=== PATIENT | male | born 1980 | race Caucasian/White ===

== ENCOUNTER 2021-05-02 17:57 | Observation (INO) | payer SELFPAY ==
--- NOTE | 2021-05-02 18:22 | ED.GENADUL_ITS ---
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 Orthopedics is recommending you wear a thumb splint for comfort but you can remove it if needed. If it recommended you follow up with orthopedics in the next 1-2 weeks. Referrals: Yonatan Chew MD [ [facility] STAFF PHYSICIAN] - Medical Decision Making <Erika Ellison - Last Filed: 05/02/21 23:29> 40-year-old male presents to the ER with chief complaint of psych evaluation and suicidal ideation. Patient presents with police officers he is in handcuffs. Upon initial examination he is laying on the ground in the waiting room banging his head up against a door stating I want to kill myself, I want to slit my wrist, I want to cut my throat. He is yelling, pressured speech, patient is not answering any questions. 1822: Spoke with Ne with [facility] who reports that [employer] patient was taken into custody for assault and began stating he wanted to kill himself and was harming himself in the holding cell. 1827: Patient escorted back to the room forcefully by police, he is yelling obscenities to staff, he did spit in the face of one of the officers upon entrance into the room. Patient states to one of the staff, I feel like I want to beat the shit out of you just because I'm here for mental health and I can. Psychiatric work-up ordered including labs and urine, Haldol, Ativan and Benadryl IM ordered. Code kayley called. 1848: Patient initially agreed to take oral medication however at this time he is now refusing. Patient did get into paper down, his belongings were collected he is in line of sight of the nurses station. He states that he is willing to have his blood drawn and a urine sample obtained. Patient standing in room pushing the call buton box, called a staff assist. 1910: Patient has agreed to have labs drawn. He continues to be disruptive and yelling obscenities and threats at myself and staff. He is threatening to put my ass through that glass brenda you all are taking too long. property staff accountant to attempt again to give patient medication to decrease anxiety and agitation. 1925: Patient agreed to take medications orally however right after he escalated and became more agitated and became violent, he is rocking the stretcher back and forth, then standing at the entrance to the room naked with his fists up striking his fist out at the security manager and hitting his hand that was up by his face. He is also making verbal threats to the staff. He stated to Kellie RN that I'm going to snap your fucking neck bitch. Dr. La Nena Mccarty is here at bedside, we are prepared to restrain patient physically and sedate if needed. [facility] here. 1944: [facility] here requesting immediate mental health evaluation, they will stay with patient in the room until MH arrives. Lab results show no leukocytosis hemoglobin 11.4, hematocrit 36.3, sodium 139, potassium 3.4, ethyl alcohol 108.5 2021: Ne with [facility] here at for patient evaluation. 2038: Patient is slight sleepy at this time, spoke with Ne with [facility] has completed her evaluation. Per [facility] they are hesitant to take patient to long term due to patient's voluntary status and suicidal ideation. Patient did express a plan to Ne for suicide and stated that he wanted to jump in the line of traffic or do anything necessary to kill himself. [facility] did say that if patient elevates or becomes agitated at all to call them right away and they will be happy to return to the hospital. At this time we did not attempt to restrain patient and we are decreasing stimulus as much as possible at this time. [facility] will be seeking inpatient psychiatric placement. 2218: Patient sleeping, has remained calm since medications. Restraint orders canceled, they were never initiated. Care is to be handed off to ER attending Dr. Brandon pending inpatient psych placement. At this time patient is voluntary and is sleeping in the room, sitter is at bedside. <Siddhartha Brandon MD - Last Filed: 05/02/21 23:46> 40-year-old male presents to the ER with chief complaint of psych evaluation and suicidal ideation. Patient presents with police officers he is in handcuffs. Upon initial examination he is laying on the ground in the waiting room banging his head up against a door stating I want to kill myself, I want to slit my wrist, I want to cut my throat. He is yelling, pressured speech, patient is not answering any questions. 182: Spoke with Ne with [facility] who reports that [employer] patient was taken into custody for assault and began stating he wanted to kill himself and was harming himself in the holding cell. 182: Patient escorted back to the room forcefully by police, he is yelling obscenities to staff, he did spit in the face of one of the officers upon entrance into the room. Patient states to one of the staff, I feel like I want to beat the shit out of you just because I'm here for mental health and I can. Psychiatric work-up ordered including labs and urine, Haldol, Ativan and Benadryl IM ordered. Code kayley called. 1848: Patient initially agreed to take oral medication however at this time he is now refusing. Patient did get into paper down, his belongings were collected he is in line of sight of the nurses station. He states that he is willing to have his blood drawn and a urine sample obtained. Patient standing in room pushing the call buton box, called a staff assist. 191: Patient has agreed to have labs drawn. He continues to be disruptive and yelling obscenities and threats at myself and staff. He is threatening to put my ass through that glass brenda you all are taking too long. property staff accountant to attempt again to give patient medication to decrease anxiety and agitation. 192: Patient agreed to take medications orally however right after he escalated and became more agitated and became violent, he is rocking the stretcher back and forth, then standing at the entrance to the room naked with his fists up striking his fist out at the security manager and hitting his hand that was up by his face. He is also making verbal threats to the staff. He stated to Kellie RN that I'm going to snap your fucking neck bitch. Dr. La Nena Mccarty is here at bedside, we are prepared to restrain patient physically and sedate if needed. [facility] here. 1944: [facility] here requesting immediate mental health evaluation, they will stay with patient in the room until MH arrives. Lab results show no leukocytosis hemoglobin 11.4, hematocrit 36.3, sodium 139, potassium 3.4, ethyl alcohol 108.5 2021: Ne with KJ here at for patient evaluation. 2038: Patient is slight sleepy at this time, spoke with Ne with [facility] has completed her evaluation. Per [facility] they are hesitant to take patient to long term due to patient's voluntary status and suicidal ideation. Patient did express a plan to Ne for suicide and stated that he wanted to jump in the line of traffic or do anything necessary to kill himself. [facility] did say that if patient elevates or becomes agitated at all to call them right away and they will be happy to return to the hospital. At this time we did not attempt to restrain patient and we are decreasing stimulus as much as possible at this time. [facility] will be seeking inpatient psychiatric placement. 2218: Patient sleeping, has remained calm since medications. Restraint orders canceled, they were never initiated. Care is to be handed off to ER attending Dr. Brandon pending inpatient psych placement. At this time patient is voluntary and is sleeping in the room, sitter is at bedside. 05/02 Pt signed out to me, Dr. Brandon, pending psych placement. Reportedly violent on arrival but since taking po meds has been calm and sleeping, will continue to monitor until psych placement is found <Bijal Richmond DO - Last Filed: 05/07/21 08:58> 40-year-old male presents to the ER with chief complaint of psych evaluation and suicidal ideation. Patient presents with police officers he is in handcuffs. Upon initial examination he is laying on the ground in the waiting room banging his head up against a door stating I want to kill myself, I want to slit my wrist, I want to cut my throat. He is yelling, pressured speech, patient is not answering any questions. 182: Spoke with Ne with [facility] who reports that [employer] patient was taken into custody for assault and began stating he wanted to kill himself and was harming himself in the holding cell. 1827: Patient escorted back to the room forcefully by police, he is yelling obscenities to staff, he did spit in the face of one of the officers upon entrance into the room. Patient states to one of the staff, I feel like I want to beat the shit out of you just because I'm here for mental health and I can. Psychiatric work-up ordered including labs and urine, Haldol, Ativan and Benadryl IM ordered. Code kayley called. 1847: Patient initially agreed to take oral medication however at this time he is now refusing. Patient did get into paper down, his belongings were collected he is in line of sight of the nurses station. He states that he is willing to have his blood drawn and a urine sample obtained. Patient standing in room pushing the call buton box, called a staff assist. 1910: Patient has agreed to have labs drawn. He continues to be disruptive and yelling obscenities and threats at myself and staff. He is threatening to put my ass through that glass brenda you all are taking too long. property staff accountant to attempt again to give patient medication to decrease anxiety and agitation. 1925: Patient agreed to take medications orally however right after he escalated and became more agitated and became violent, he is rocking the stretcher back and forth, then standing at the entrance to the room naked with his fists up striking his fist out at the security manager and hitting his hand that was up by his face. He is also making verbal threats to the staff. He stated to Kellie RN that I'm going to snap your fucking neck bitch. Dr. La Nena Mccarty is here at bedside, we are prepared to restrain patient physically and sedate if needed. [facility] here. 1944: [facility] here requesting immediate mental health evaluation, they will stay with patient in the room until MH arrives. Lab results show no leukocytosis hemoglobin 11.4, hematocrit 36.3, sodium 139, potassium 3.4, ethyl alcohol 108.5 2021: Ne with KJ here at for patient evaluation. 2038: Patient is slight sleepy at this time, spoke with Ne with [facility] has completed her evaluation. Per [facility] they are hesitant to take patient to long term due to patient's voluntary status and suicidal ideation. Patient did express a plan to Ne for suicide and stated that he wanted to jump in the line of traffic or do anything necessary to kill himself. [facility] did say that if patient elevates or becomes agitated at all to call them right away and they will be happy to return to the hospital. At this time we did not attempt to restrain patient and we are decreasing stimulus as much as possible at this time. KJ will be seeking inpatient psychiatric placement. 2218: Patient sleeping, has remained calm since medications. Restraint orders canceled, they were never initiated. Care is to be handed off to ER attending Dr. Brandon pending inpatient psych placement. At this time patient is voluntary and is sleeping in the room, si tter is at bedside. 05/02 Pt signed out to me, Dr. Brandon, pending psych placement. Reportedly violent on arrival but since taking po meds has been calm and sleeping, will continue to monitor until psych placement is found Dr. Richmond 05/03: 0800 -- Case endorsed to continue to monitor while awaiting placement. 829 -- Patient stated he feels he injured his thumb while he was being restrained by police last night. He states he first injured his thumb last year and then subsequently sustained several more fractures and/or dislocations to his thumb which he states he reduced on his own. He states he was told in the [place] last year that he needed left thumb surgery. He has a hard bony enlargement noted to the left 1st MCP joint but this appears chronic and there is no noted ecchymosis, edema or obvious deformity. Patient states the MCP bony prominence and difficulty moving his L thumb is new since last night. He is unable to flex and extend at the IP when isolating this joint. Patient states he cannot take Tylenol or Motrin due to a child allergy of which he is unsure but he thinks one of them causes throat swelling. Discussed with patient that we would not prescribe narcotics for potential left thumb strain and he understands. If no obvious dislocation, will place a thumb spica splint. 3650 -- X-ray reviewed and notes volar subluxation of the 1st metacarpop halangeal joint. Case and x-ray reviewed with orthopedics who recommends thumb spica splint and follow-up in the office. Dr. Chew stated that the splint could be worn for comfort and removed if needed. 1030 -- patient began yelling and demanding his prayer medallion which is with his belongings. Nursing had explained that patient's belongings are secured and this time and cannot be accessed. He was offered a bible but declined. Patient states that he would like a phone to make a phone call as this is my right, and I've been admitted to lots of psych wards and they always let me have my things and make phone calls. Patient informed that we are securely holding his belongings and the plan is for him to speak with mental health around noon today. Patient was able to the redirected and now speaking more calmly. 1230 -- patient evaluated by Phuong with mental health --patient is denying suicidal or homicidal ideation but mental health feel that he would benefit from inpatient placement due to his ongoing behavior issues. Patient continuing to answer his medallion. In inspection of his belongings, patient has multiple heavy medallion's with large heavy chains that would be a potential risk to patient or others. Discussed with patient that we can give him his medallions without the chains but he is refusing. 1500 -- patient evaluated by Dr. Faulkner who found that patient is acutely agitated, may be acute clayton associated with bipolar disorder. He is recommending starting Depakote 1000 mg nightly, olanzapine 10 mg twice daily, olanzapine 5 mg every 4 hours up to a total of 30 mg, clonidine 0.1 mg 3 times daily, and lorazepam 1 to 2 mg every 4 hours as needed for agitation. 1730 -- patient is continuing to demand his medallion's. I d/w pt that this is hospital policy for his safety as he told mental health that if he was discharged, he would just kill myself then. Pt then stated to me I never said that. This was discussed again with mental health and they stated they would re-evaluate in the morning. Patient threw a tray of food at the door. Patient states he was refusing to speak to me and stated to the [employer] referring to me I threw that shit for that bitch to clean up. 1999 -- Case endorsed to Dr. Cantor to continue to monitor overnight. Dr. Richmond 05/07: 0800 -- discussed with nursing supervisor winding department and there is availability to accept patient on the floor while awaiting placement. He has been voluntary and cooperative. 0900 -- discussed with hospitalist who accepts patient for admission to the floor. Medical Records Medical records reviewed: Yes I reviewed the patient's medical records. Imaging Data Radiologic Study: Radiologist's impression: XR Left Finger(s) Exam date and time: 05/03/2021 8:34 AM Age: 41 years old Clinical indication: Injury or trauma; Other: S/P twisting injury, R/O dislocation; Sprain or strain; Finger; Left; Thumb TECHNIQUE: Imaging protocol: XR Left fingers. Views: Minimum 2 views. COMPARISON: No relevant prior studies available. FINDINGS: Bones/joints: There is degenerative arthrosis of the 1st metacarpophalangeal joint, with a small subchondral cyst.? There is volar subluxation of the 1st phalanx with respect to the metacarpal.? There is no acute fracture. Soft tissues: Normal. IMPRESSION: Volar subluxation of the 1st metacarpophalangeal joint. HPI <Erika Ellison - Last Filed: 05/02/21 23:29> General Mode of arrival: ambulatory . Date/Time Provider Initiated Documentation: 05/02/21 18:06 . Limitations to Documentation: altered mental status . HPI Narrative: 40-year-old male presents to the ER with chief complaint of psych evaluation and suicidal ideation. Patient presents with police officers he is in handcuffs. Upon initial examination he is laying on the ground in the waiting room banging his head up against a door stating I want to kill myself, I want to slit my wrist, I want to cut my throat. He is yelling, pressured speech, patient is not answering any questions. Related Data Home Medications Medication Instructions Recorded Confirmed dextroamphetamine-amphetamine 30 30 mg PO DAILY 05/03/21 05/03/21 mg tablet (Adderall) divalproex 500 mg tablet,delayed 500 mg PO DAILY 05/03/21 release (Depakote) risperidone 1 mg tablet 1 mg PO 05/03/21 trazodone 50 mg tablet mg 05/03/21 Allergies Allergy/AdvReac Type Severity Reaction Status Date / Time acetaminophen [From Tylenol] Allergy Unverified 05/03/21 07:35 General KATHERINE: 2 PFSH <Erika Ellison Last Filed: 05/02/21 23:29> All Active Problems (Updated 05/04/21 @ 11:55 by Bijal Richmond DO) Depression (Chronic) Subluxation of left thumb (Acute) 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 Const General: healthy appearing, anxious, combative, not ill appearing and does not appear intoxicated Nutritional Appearance: average body habitus Orientation: alert, awake and oriented x3 Limitations: behavioral limitations HENMT Head: normal to inspection General nose exam: external nose normal Mouth: lip normal Chest Chest: normal inspection of the chest Resp Effort & Inspection: normal respiratory effort and able to speak in complete sentences Psych Speech and Movement: agitated and pressured speech Mood: manic mood, angry and irritable mood Affect: hostile and irritable affect Attitude: belligerent Thought Content: suicidality Insight: poor Judgment: poor Critical Care Time <Erika Ellison Filed: 05/02/21 23:29> Critical Care Time Critical Care Time: Yes Total Critical Care Time: 65 Attestation: I spent greater than 35 minutes addressing this patient's acute life threatening illness. This time was spent engaged in actions directly related to the patient's care. Failure to initiate these interventions would have likely resulted in clinically significant or life threatening deterioration in the patients condition. Sign Out <Erika Ellison Sergei Filed: 05/02/21 23:29> Sign Out Data: Sign Out Comment: Combative, agitated, suicidal patient was given 1 mg lorazepam, 25 mg Benadryl, 2 mg Haldol p.o. He did become violent and had [facility] called who state if patient becomes agitated again they will respond. [facility] seeking inpatient placement he is voluntary at this time. Last updated by Erika Ellison at 05/02/21 23:21 Sign Out Comment: Patient cooperative today. Awaiting placement. Last updated by Bijal Richmond DO at 05/06/21 16:26 Sign Out Comment: 47-year-old awaiting voluntary placement for hospital. Unremarkable during shift Last updated by Jude Perez MD at 05/06/21 22:59 Sign Out Comment: Patient remained stable throughout the night waiting voluntary placement. Recommend inpatient admission while the patient waits for Last updated by Chris Cantor DO at 05/07/21 07:31 Sign Out Comment: came in on day crew combative with [facility], sedated with oral meds and overnight no issues, is currently voluntary for SI Last updated by Siddhartha Brandon MD at 05/02/21 23:45 Sign Out Comment: Voluntary. Agitated. Demanding his medallions. Evaluated by Dr. Faulkner today with scheduled and prn medications ordered. Patient denies suicidal or homicidal ideation at this time but stated he would attempt to harm himself if he was discharged. He is currently homeless. Plan is to seek placement at this time for mental health. Mental health will reevaluate in the morning. Last updated by Bijal Richmond DO at 05/03/21 20:00 Sign Out Comment: Patient stable throughout the night. Waiting for reassessment in the morning. Last updated by Chris Cantor DO at 05/04/21 07:13 Sign Out Comment: Dr. Faulkner agrees that placement is best option, awaiting Kaushik kelly to check in in AM Last updated by Dion Hamilton MD at 05/04/21 17:00 Sign Out Comment: No issues today. Pending placement. Last updated by Bijal Richmond DO at 05/04/21 23:05 Sign Out Comment: Stable throughout the evening, follow-up with psychiatry in the morning, and mental health reassessment. Last updated by Chris Cantor DO at 05/05/21 07:53 Sign Out Comment: Awaiting psych placement, PD investigation underway regarding possible [id number] charges, Dr Faulkner suggests adding AM depakote 500 mg if needed. Has been stable during day shift Last updated by Dion Hamilton MD at 05/05/21 20:21 Sign Out Comment: Awaiting placement, PAD investigation currently underway. Stable throughout the evening. 500 mg of a.m. Depakote was started. Last updated by Chris Cantor DO at 05/06/21 07:01
[2021-05-02 19:21] LABS: Abs Immature Grans 0.01 10^3/uL (0.0-0.06); Absolute Basophil Count 0.04 10^3/uL (0.0-0.2); Absolute Eosinophil Count 0.03 10^3/uL (0.0-0.7); Absolute Lymphocyte Count 2.25 10^3/uL (1.2-3.4); Absolute Monocyte Count 0.41 10^3/uL (0.1-0.8); Absolute Neutrophil Count 2.59 10^3/uL (1.2-6.7); Basophils % 0.8; Eosinophils % 0.6; HCT 36.3 % (40.0-50.0); HGB 11.4 g/dL (13.5-17.5); Immature Grans % 0.2; Lymphocytes % 42.2; MCH 27.6 pg (27.0-33.0); MCHC 31.4 % (32.0-36.0); MCV 87.9 fL (80-95); MPV 8.9 fL (8.0-11.0); Monocytes % 7.7; Neutrophils % 48.5; Nucleated RBC 0 %; Platelet Count 201 10^3/uL (130-400); RBC 4.13 10^6/uL (4.36-5.78); RDW 19.7 % (11.8-14.1); RDW-SD 62.7 fL; WBC 5.33 10^3/uL (4.4-10.8)
[2021-05-02] MEDS: LORazepam 1 MG TAB 2 MG PO (19:30)
[2021-05-02] MEDS: Haloperidol 5 MG TAB PO (19:30)
[2021-05-02] MEDS: diphenhydrAMINE 25 MG CAP 50 MG PO (19:30)
[2021-05-02 19:43] LABS: ALT 16 U/L (16-63); AST 16 U/L (15-37); Albumin 3.9 g/dL (3.4-5.0); Alkaline Phosphatase 62 U/L (46-116); Anion Gap 8.5 mmol/L (3-11); BUN 6 mg/dL (7-18); Bilirubin, Total 0.3 mg/dL (0.2-1.0); CO2 25.5 mmol/L (21.0-32.0); CREATININE 1.3 mg/dL (0.70-1.30); Calcium 8.7 mg/dL (8.5-10.1); Chloride 105 mmol/L (98-107); ETHANOL BLOOD 108.5 mg/dL (<10); Glucose 100 mg/dL (74-106); Potassium 3.4 mmol/L (3.5-5.1); Sodium 139 mmol/L (136-145); TSH (W/Ref FT4) 0.92 uIU/mL (0.36-3.74); Total Protein 8.3 g/dL (6.4-8.2)
[2021-05-02 19:48] LABS: Acetaminophen < 2 ug/mL (10-30); Salicylate 3.1 mg/dL (<2.8)
--- NOTE | 2021-05-02 22:06 | PDOC.MHCN_ITS ---
Date of service: 05/02/21 Time of Service: 18:15 Mental Health Crisis Note Presenting Issue How did you arrive at the ED and why did you come: Client arrived at [facility] after this curriculum writer attempted to evaluate him at the police station and he refused to engage, but agreed to come to the hospital for medical clearance and to seek voluntary placement. Once at hospital client became verbally and physicaly aggressive towards staff. Precipitating Factors Client endorses SI with intent 10/10 and plan to jump out into traffic or to find anyway to kill himself. Disposition BEHAVIOR: VSP is present at bedside due to clients aggressive behavior. Client is laying on hospital bed unclothed, but is covered with hospital blanket when this curriculum writer arrives in person. Client is not very cooperative when answering questions, however answers questions minimally. A full assessment could not be completed, but will try to be done in the morning. EYE CONTACT: Client makes no eye contact with this curriculum writer as his face is covered up with a blanket during the whole assessment. MOOD: Clients mood appears to be very agitated. AFFECT: Clients mood appears to be labile and expansive. APPETITE: Client states that he has not ate for 4 days. SLEEP(trouble falling/staying asleep: Client states that he hasn't slept in days due to his manic state. Plan Client will remain at [facility] Ed on voluntary status. VSP, this curriculum writer, and [facility] staff all agree if client amps up again tonight that VSP will be called. [facility] will follow up with client daily. Referrals will be sent to [facility], [facility], [facility],and [facility]. If client tries to leave the hospital [facility] should be called for re- assessment and EE could be written due to clients danger to himself and others. Signature Clinician's Name/Title: Ne Velazco [facility] Emergency Clinician.
--- NOTE | 2021-05-02 22:06 | PDOC.MHCN ---
Date of service: 05/02/21 Time of Service: 18:15 Mental Health Crisis Note Presenting Issue How did you arrive at the ED and why did you come: Client arrived at [facility] after this database report writer attempted to evaluate him at the police station and he refused to engage, but agreed to come to the hospital for medical clearance and to seek voluntary placement. Once at hospital client became verbally and physicaly aggressive towards staff. Precipitating Factors Client endorses SI with intent 10/10 and plan to jump out into traffic or to find anyway to kill himself. Disposition BEHAVIOR: VSP is present at bedside due to clients aggressive behavior. Client is laying on hospital bed unclothed, but is covered with hospital blanket when this database report writer arrives in person. Client is not very cooperative when answering questions, however answers questions minimally. A full assessment could not be completed, but will try to be done in the morning. EYE CONTACT: Client makes no eye contact with this database report writer as his face is covered up with a blanket during the whole assessment. MOOD: Clients mood appears to be very agitated. AFFECT: Clients mood appears to be labile and expansive. APPETITE: Client states that he has not ate for 4 days. SLEEP(trouble falling/staying asleep: Client states that he hasn't slept in days due to his manic state. Plan Client will remain at [facility] Ed on voluntary status. VSP, this database report writer, and [facility] staff all agree if client amps up again tonight that VSP will be called. [facility] will follow up with client daily. Referrals will be sent to [facility], [facility], [facility],and [facility]. If client tries to leave the hospital [facility] should be called for re-assessment and EE could be written due to clients danger to himself and others. Signature Clinician's Name/Title: Ne Velazco [facility] Emergency Clinician.
[2021-05-03 06:59] LABS: Bilirubin Negative (Negative); Blood Negative (Negative); Clarity Clear (Clear); Glucose Negative (Negative); Ketones Negative (Negative); Leukocyte Esterase Negative (Negative); Nitrite Negative (Negative); Specific Gravity >= 1.030 (1.005-1.025); Urobilinogen 0.2 EU/dL (Up TO 0.2); pH 5.5 (5-8)
[2021-05-03 07:07] LABS: Source Nasal/Nares
[2021-05-03 07:11] LABS: *AMPHETAMINES SCREEN URINE Negative (Negative); *BARBITURATES SCREEN URINE Negative (Negative); *BENZODIAZEPINES SCREEN URINE Negative (Negative); Cannabinoids THC Positive (Negative); Cocaine Screen,Urine Negative (Negative); METHADONE URINE SCREEN Negative (Negative); OPIATES URINE SCREEN Negative (Negative)
[2021-05-03 07:13] LABS: Tricyclic Antidepressants Negative (Negative)
[2021-05-03 07:32] VITALS: BP 145/69; PULSE 77; RESP 16; TEMP 36.9; O2SAT 99
[2021-05-03 07:46] LABS: COVID-19 PCR Negative (Negative)
--- NOTE | 2021-05-03 08:30 | DI.RAD_ITS ---
Exam(s) XR THUMB LT EXAM: XR THUMB LT CLINICAL HISTORY: s/p twisting injury, r/o dislocation. TECHNIQUE: 2D digital imaging was performed. 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 No obvious fracture. No oss eous lesions. No degenerative changes evident at the articulation between the thumb metacarpal and t rapezium nor in the interphalangeal joint of the thumb. IMPRESSION: DATA REPOSITORY: RADIATION DOSE DELIVERED:
--- NOTE | 2021-05-03 09:02 | DI.VRAD_ITS ---
PROCEDURE INFORMATION: Exam: XR Left Finger(s) Exam date and time: 05/03/2021 8:34 AM Age: 41 years old Clinical indication: Injury or trauma; Other: S/P twisting injury, R/O dislocation; Sprain or strain; Finger; Left; Thumb TECHNIQUE: Imaging protocol: XR Left fingers. Views: Minimum 2 views. COMPARISON: No relevant prior studies available. FINDINGS: Bones/joints: There is degenerative arthrosis of the 1st metacarpophalangeal joint, with a small subchondral cyst. There is volar subluxation of the 1st phalanx with respect to the metacarpal. There is no acute fracture. Soft tissues: Normal. IMPRESSION: Volar subluxation of the 1st metacarpophalangeal joint. Dictated and Authenticated by: Kristian Sinclair MD. Ordering:TODD Appiah MD
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
[2021-05-03] MEDS: cloNIDine 0.1 MG TAB PO (16:18)
[2021-05-03] MEDS: OLANZapine 10 MG TAB PO ×2 (16:18→20:11)
--- NOTE | 2021-05-03 17:55 | NUR.NOTE ---
Accessed patient chart to see if Phuong Ashton had put in a note on the patient. No note at this time. Gabriella Rosen Nursing Note:
[2021-05-03] MEDS: LORazepam 1 MG TAB PO (20:11)
[2021-05-03] MEDS: Divalproex 500 MG TABEC 1000 MG PO (22:03)
[2021-05-03 22:10] VITALS: BP 78/47; PULSE 41; RESP 14; O2SAT 94
[2021-05-04 02:00] VITALS: BP 117/79; PULSE 60; RESP 14; O2SAT 99
[2021-05-04 02:05] VITALS: BP 111/74; PULSE 40; RESP 14; O2SAT 98
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
[2021-05-04] MEDS: LORazepam 1 MG TAB PO ×4 (09:11→16:59)
[2021-05-04] MEDS: OLANZapine 10 MG TAB PO ×2 (09:11→23:18)
[2021-05-04 09:36] VITALS: BP 113/71; PULSE 63; TEMP 36.7; O2SAT 98
--- NOTE | 2021-05-04 10:52 | PDOC.CMSAFED ---
- If Service Date Differs Date of service: 05/04/21 Time of Service: 10:52 Care Management Safety Plan Status: Voluntary - Reason for Wait Reason for Wait: Inpatient Admission VOLUNTARY FOR INPATIENT PSYCHIATRIC STABILIZATION. Patient is appropriate in all interactions since arriving at [facility]; Pt has demonstrated appropriate coping and communication skills, has articulated his or her needs and concerns and is fully engaged during staff interactions. A huddle is held at 10:[address] Hamilton, ED provider, Louisa, Nursing Buhr Mill Operator, MARYJANE Larkin, and TANVI Silva, in attendance. Safety plan has been established with patient, and care team, to adhere to patient goals, identify restrictions based on behavioral status, address nutrition, and determine allowed personal belongings, tools for hygiene and personal care. Determine level of activity including ambulation, level of supervision, visitors, and determine privileges based on behaviors and level of engagement by pt. SAFETY PLAN: 1. Will remain on suicide precautions. In Paper Clothes 2. Will remain in room under direct supervision of one-on-one staff at all times provided by MICHAELAO, BONIFACIO, LEEANN ladder operator. One-on-one staff will provide supervision by looking through the window and will be positioned away from the doorway of the room. 3. May have paper cups, plates, finger foods as well as a cardboard spoon with which to eat meals. 4. Follow [facility] Management of the Admitted Behavioral Health Patient policy. 5. Comfort bath system only. 6. No personal belonging. 7. Visitors-none at this time. 8. Activities: limited to television and remote. 9. Bathroom privileges with escort in the ED, available in room without limitation on M/S. 10. Phone: no phone use at this time. 11. Due to VOLUNTARY status, if patient wishes to leave [facility], do not attempt to stop patient from leaving. Staff will contact [facility] Crisis Screener ([phone]) and On-Call Telephone Collector ([phone]) as soon as possible. In the event of elopement, notify [place] [employer] ([phone]). Patient is currently voluntarily at [facility] and seeking inpatient admission when a bed becomes available. [facility] Frontline Disability Program Navigator will continue seeking placement. Please contact the Assistant To The President Telephone Collector ([phone]) and [facility] Disability Program Navigator ([phone]) for any needed changes in the Safety Plan. Safety plan has been provided to interdepartmental care team.
--- NOTE | 2021-05-04 11:03 | CMPROGNOTE_ITS ---
- If Service Date Differs Date of service: 05/04/21 Time of Service: 11:03 Care Management Progress Note S/O: Andre is not known to either [facility] or [facility]. He reportedly has a history of Bipolar Disorder and PTSD with multiple treatment episodes, per Dr. Faulkner's note. He, however, has not been in treatment for the past 2 years. Since being at [facility], Andre has at times been aggressive and threatening towards staff. Due to his mood lability, interactions with patient will be kept to a minimum for both his safety and that of others. A: Andre is a 41 year old man who presents in the ED via police for psychosis. P: Referrals are faxed to [facility], [facility], [facility], and for review. Andre will remain at [facility] on voluntary status and will be reassessed by [facility] daily until a psychiatric bed placement can be secured for him. CM will continue to follow. - Status Status: Voluntary - Reason for Wait Reason for Wait: Inpatient Admission
--- NOTE | 2021-05-04 11:03 | PDOC.ERCMPRO ---
- If Service Date Differs Date of service: 05/04/21 Time of Service: 11:03 Care Management Progress Note S/O: Andre is not known to either [facility] or [facility]. He reportedly has a history of Bipolar Disorder and PTSD with multiple treatment episodes, per Dr. Faulkner's note. He, however, has not been in treatment for the past 2 years. Since being at [facility], Andre has at times been aggressive and threatening towards staff. Due to his mood lability, interactions with patient will be kept to a minimum for both his safety and that of others. A: Andre is a 41 year old man who presents in the ED via police for psychosis. P: Referrals are faxed to [facility], [facility], [facility], and [facility] for review. Andre will remain at [facility] on voluntary status and will be reassessed by [facility] daily until a psychiatric bed placement can be secured for him. CM will continue to follow. - Status Status: Voluntary - Reason for Wait Reason for Wait: Inpatient Admission
--- NOTE | 2021-05-04 13:13 | NUR.NOTE ---
patient upset because he doesn't have a bed somewhere yet. spoke with patient about bed status in the state and this angered him. allowed to express feelings, advised him if he had behavorial outbursts, facilities might be less apt to take him and that we have no control over whether he gets a bed or not, we are just here to take care of him while he is a patient here. patient acknowledged this fact, but is highly labile, impulsive.
[2021-05-04 13:15] VITALS: BP 104/69; PULSE 58; RESP 16; O2SAT 97
--- NOTE | 2021-05-04 13:18 | PDOC.MHCN ---
Date of service: 05/04/21 Time of Service: 13:20 Mental Health Crisis Note Presenting Issue How did you arrive at the ED and why did you come: Pt arrived on 05.02.2021 via police seeking voluntary treatment.? He had been evicted from his housing at the [facility] reportedly for disturbing the peace.? Precipitating Factors Pt is denying SI and HI. He stated that this clinician lied on 05.03.2021 about him being SI or HI that he never was and this clinician reminded him of his statements. It was not until this clinician attempted to safety plan that he stated he would hurt someone if he left and went to the [facility]. As the zoom was being taken out he said he would kill himself by suicide if he was not put into treatment. Disposition BEHAVIOR: Pt is demanding and rude. He gives no detail only what he wants to give and will not engage in a formal assessment. EYE CONTACT: Eye contact was completely avoidance until he got angry about the possibility of being discharged and then it was angry and intense. MOOD: Pt's mood is deregulated, angry and non-cooperative. AFFECT: Affect is congruent. APPETITE: Pt is reported to be eating fine. SLEEP(trouble falling/staying asleep: Pt reported he did not sleep well last night and was sleeping when this clinician arrived at 12:30pm via zoom. Plan It is this clinician's professional oppinion that the Pt is only seeking treatment for the purpose of having a place to stay. He admitted that he was not honest on 05.03.2021 about being suicidal and that he continues to not be suicidal. It is this clinician's professional opinion that he could receive his services on an outpatient basis however, he is refusing to do so therefore he will be held due to concerns of imminent risk should he be released. [facility] will continue to seek placement. Signature Clinician's Name/Title: Phuong Ashton MS, [facility] Emergency Services Clinician, [facility]
[2021-05-04] MEDS: cloNIDine 0.1 MG TAB PO (13:26)
[2021-05-04] MEDS: OLANZapine 5 MG TAB PO (13:28)
--- NOTE | 2021-05-04 14:11 | W.PSYCHFU ---
Date of Service Date of service: 05/04/21 Time of Service: 14:11 Psychiatry Subjective Events Since Initial Consult/Last Note:: Started on depakote, olanzapine, clonidine, and lorazepam. Referred for inpatient psychiatric admission. No episodes of overt physical aggression. Episodic agitation is noted. Sleep remains poor and he estimates he may have napped about 3 hours in the last 24. Speech remains pressured. Racing thoughts and tangentiality persists. He received 2 mg lorazepam within hour of interview and is noted more subdued. Denies suicidal or homcidial ideation at this time. Medications are well tolerated and he is adherent to recommended treatment. He is frustrated with pace of referral for inpatient psychiatry, but is agreeable to being treated in the ED prior to transfer tto inpatient psychiatry. Exam Psych Appearance: grossly normal Mental Status: mental status grossly normal Speech and Movement: pressured speech and restless Mood: manic mood Affect: animated, dysphoric affect and irritable affect Attitude: belligerent Thought Process: circumstantial, flight of ideas and loose association Thought Content: delusions (grandiose, hyperreligoius.) Insight: limited Judgment: limited Objective Medications: Active Inpatient Medications Report Generic Name Dose Route Start Last Admin Trade Name Freq PRN Reason Stop Dose Admin Clonidine 0.1 mg 05/03/21 15:45 05/04/21 13:26 Clonidine 0.1 Mg Tab PO 0.1 mg TID ADEN Administration Divalproex Sodium 1,000 mg 05/03/21 22:00 05/03/21 22:03 Divalproex 500 Mg Tabec PO 1,000 mg HS ADEN Administration Lorazepam 0 mg 05/03/21 16:00 05/04/21 12:34 Lorazepam 1 Mg Tab PO 1 mg QID ADEN Administration Olanzapine 10 mg 05/03/21 15:45 05/04/21 09:11 Olanzapine 10 Mg Tab PO 10 mg BID ADEN Administration Olanzapine 5 mg 05/03/21 15:42 05/04/21 13:28 Olanzapine 5 Mg Tab PO 5 mg Q4H PRN Administration Agitation Discontinued Medications Generic Name Dose Route Start Last Admin Trade Name Freq PRN Reason Stop Dose Admin Diphenhydramine HCl 50 mg 05/02/21 18:39 05/02/21 19:30 Diphenhydramine 25 Mg Cap PO 05/02/21 18:40 25 mg NOW ONE Administration Haloperidol 5 mg 05/02/21 18:39 05/02/21 19:30 Haloperidol 5 Mg Tab PO 05/02/21 18:40 5 mg NOW ONE Administration Ibuprofen 600 mg 05/04/21 13:07 05/04/21 13:27 Ibuprofen 600 Mg Tab PO 05/04/21 13:08 Not Given NOW ONE Lorazepam 2 mg 05/02/21 18:39 05/02/21 19:30 Lorazepam 1 Mg Tab PO 05/02/21 18:40 1 mg NOW ONE Administration Vitals: Vital Signs - 24 hr 05/03/21 22:10 05/04/21 02:00 05/04/21 02:05 Temperature Pulse 41 L 60 40 L Respiratory Rate 14 14 14 Blood Pressure 78/47 L 117/79 111/74 Pulse Oximetry 94 99 98 05/04/21 09:36 05/04/21 13:15 Temperature 36.7 C Pulse 63 58 L Respiratory Rate 16 Blood Pressure 113/71 104/69 Pulse Oximetry 98 97 Consent/Time spent Consent/Time Spent The patient has consented to a virtual communication with the provider: Yes Visit performed via: Telehealth Time Spent (minutes): 30
[2021-05-04 23:00] VITALS: BP 81/52; PULSE 42; RESP 14; TEMP 36.5; O2SAT 98
[2021-05-04] MEDS: Divalproex 500 MG TABEC 1000 MG PO (23:18)
[2021-05-05 05:45] VITALS: BP 114/71; PULSE 54; RESP 16; TEMP 36.5; O2SAT 99
[2021-05-05] MEDS: LORazepam 1 MG TAB PO ×4 (06:01→20:56)
[2021-05-05] MEDS: OLANZapine 10 MG TAB PO ×2 (06:50→20:57)
[2021-05-05] MEDS: OLANZapine 5 MG TAB PO (06:50)
[2021-05-05] MEDS: cloNIDine 0.1 MG TAB PO ×2 (13:54→21:00)
--- NOTE | 2021-05-05 14:24 | PDOC.CMSAFED ---
- If Service Date Differs Date of service: 05/05/21 Time of Service: 14:24 Care Management Safety Plan Status: Voluntary - Reason for Wait Reason for Wait: Inpatient Admission VOLUNTARY FOR INPATIENT PSYCHIATRIC STABILIZATION. Patient is appropriate in all interactions since arriving at [facility]; Pt has demonstrated appropriate coping and communication skills, has articulated his or her needs and concerns and is fully engaged during staff interactions. Safety plan has been established with patient, and care team, to adhere to patient goals, identify restrictions based on behavioral status, address nutrition, and determine allowed personal belongings, tools for hygiene and personal care. Determine level of activity including ambulation, level of supervision, visitors, and determine privileges based on behaviors and level of engagement by pt. SAFETY PLAN: 1. Will remain on suicide precautions. In Paper Clothes 2. Will remain in room under direct supervision of one-on-one staff at all times provided by CPSO, BONIFACIO, PORCELAIN MIXER charge authorizer. One-on-one staff will provide supervision by looking through the window and will be positioned away from the doorway of the room. 3. May have paper cups, plates, finger foods as well as a cardboard spoon with which to eat meals. 4. Follow [facility] Management of the Admitted Behavioral Health Patient policy. 5. Comfort bath system only. 6. No personal belonging. 7. Visitors-none at this time. 8. Activities: limited to television and remote. 9. Bathroom privileges with escort in the ED, available in room without limitation on M/S. 10. Phone: no phone use at this time. 11. Due to VOLUNTARY status, if patient wishes to leave [facility], do not attempt to stop patient from leaving. Staff will contact [facility] Crisis Screener ([phone]) and On-Call Floor Polisher ([phone]) as soon as possible. In the event of elopement, notify [employer] Police ([phone]). Patient is currently voluntarily at [facility] and seeking inpatient admission when a bed becomes available. [facility] Frontline Javascript Web Developer will continue seeking placement. Please contact the Lead Recoverer Floor Polisher ([phone]) and [facility] Javascript Web Developer ([phone]) for any needed changes in the Safety Plan. Safety plan has been provided to interdepartmental care team.
--- NOTE | 2021-05-05 16:03 | PDOC.MHPN2 ---
Date of service: 05/05/21 Time of Service: 09:50 Mental Health Progress Note Progress Note Progress Note: Presenting Issue: Client presents at [facility] ED via [place] [employer]. Initially endorsing SI with intent and plan. Client is being assessed daily while awaiting in patient placement. Precipitating Factors Client reports concern for 17 y/o son who he states is on the run. Disposition * Behavior: Agitated, withdrawn. Client reports we can agree to disagree *Eye Contact: Limited. Client struggles to maintain eye contact. *Mood: Client reports Better *Affect: Pressured speech, tangential, loose associations. *Appetite: Not reported. *Sleep(trouble falling/staying asleep): Client presents very tired as he struggles to stay awake during assessment. Plan(please elaborate and include that physician is consulted with plan and/or placement):Client was very difficult to understand today, clients speech was mumbled. Clients report to questions of SI/ HI were vague reporting as long as I am in the hospital I am safe. Client reports he is seeking in patient treatment. Referrals have been sent to [facility] [place], and [facility]. Currently no beds available. Client will be assessed daily until placement can be found. Clinician's Name , Title, and Signature Fabio Jauregui BA Make sure that you are photocopying and submitting this to [facility] records Dept. to be scanned into chart.
[2021-05-05] MEDS: Ibuprofen 600 MG TAB PO (17:30)
--- NOTE | 2021-05-05 17:37 | PDOC.ERCMPRO ---
- If Service Date Differs Date of service: 05/05/21 Time of Service: 17:37 Care Management Progress Note S/O: Overall, Andre has kept to himself, spending much of his time in bed with covers pulled over his head. His speech remains pressured and he continues to report racing thoughts. Mood is improved and he is cooperative with taking medications. He is sleeping and eating well. CM will continue to follow. A: Andre is a 41 year old man who presents in the ED via police for psychosis and suicidal/homicidal ideation. P: Referrals were faxed to [facility], [facility], [facility], and [facility] for review. There are no available beds today. Andre will remain at [facility] on voluntary status and will be reassessed by [facility] daily until a psychiatric bed placement can be secured for him. CM will continue to follow. - Status Status: Voluntary - Reason for Wait Reason for Wait: Inpatient Admission
[2021-05-05 21:00] VITALS: BP 108/73; PULSE 61; RESP 16; TEMP 36.2; O2SAT 99
[2021-05-05] MEDS: Divalproex 500 MG TABEC 1000 MG PO (22:33)
[2021-05-06] MEDS: Divalproex 500 MG TABEC PO (05:54)
[2021-05-06] MEDS: OLANZapine 5 MG TAB PO ×3 (05:55→23:40)
[2021-05-06] MEDS: LORazepam 1 MG TAB PO ×3 (05:55→20:12)
[2021-05-06] MEDS: OLANZapine 10 MG TAB PO ×2 (05:55→20:12)
[2021-05-06 06:00] VITALS: BP 98/60; PULSE 56; RESP 14; TEMP 36.5; O2SAT 99
[2021-05-06] MEDS: Ibuprofen 600 MG TAB (06:20)
--- NOTE | 2021-05-06 11:37 | NUR.NOTE ---
Nursing Note: Another CPSO is in the patient chart. Patient is lying in bed, covered entirely up by a blanket. Seems to be sleeping. Room is dark. Gabriella Rosen
[2021-05-06 14:20] VITALS: BP 118/69; PULSE 78; RESP 16; TEMP 36.9; O2SAT 98
[2021-05-06] MEDS: cloNIDine 0.1 MG TAB PO ×2 (14:21→20:12)
--- NOTE | 2021-05-06 15:12 | CMSP_ITS ---
- If Service Date Differs Date of service: 05/06/21 Time of Service: 15:12 Care Management Safety Plan Status: Voluntary - Reason for Wait Reason for Wait: Inpatient Admission VOLUNTARY FOR INPATIENT PSYCHIATRIC STABILIZATION. Patient is appropriate in all interactions since arriving at [facility]; Pt has demonstrated appropriate coping and communication skills, has articulated his or her needs and concerns and is fully engaged during staff interactions. A decentralized huddle is done at approximately 11:00 am with Sissy, nursing cargo service supervisor, MARYJANE Jackson, and TANVI Silva. Safety plan has been established with patient, and care team, to adhere to patient goals, identify restrictions based on behavioral status, address nutrition, and determine allowed personal belongings, tools for hygiene and personal care. Determine level of activity including ambulation, level of supervision, visitors, and determine privileges based on behaviors and level of engagement by pt. SAFETY PLAN: 1. Will remain on suicide precautions. In Paper Clothes 2. Will remain in room under direct supervision of one-on-one staff at all times provided by MICHAELAO, BONIFACIO, LEEANN miniature set constructor. One-on-one staff will provide supervision by looking through the window and will be positioned away from the doorway of the room. 3. May have paper cups, plates, finger foods as well as a cardboard spoon with which to eat meals. 4. Follow [facility] Management of the Admitted Behavioral Health Patient policy. 5. Comfort bath system only. 6. No personal belonging. 7. Visitors-none at this time. 8. Activities: limited to television and remote. 9. Bathroom privileges with escort in the ED, available in room without limitation on M/S. 10. Phone: no phone use at this time. 11. Due to VOLUNTARY status, if patient wishes to leave [facility], do not attempt to stop patient from leaving. Staff will contact [facility] Crisis Screener ([phone]) and On-Call Inclusion Special Educator ([phone]) as soon as possible. In the event of elopement, notify [facility] Police ([phone]). Patient is currently voluntarily at [facility] and seeking inpatient admission when a bed becomes available. [facility] Frontline Shirt Ironer Supervisor will continue seeking placement. Please contact the Machinist Class B Inclusion Special Educator ([phone]) and [facility] Shirt Ironer Supervisor ([phone]) for any needed changes in the Safety Plan. Safety plan has been provided to interdepartmental care team.
--- NOTE | 2021-05-06 15:14 | CMPROGNOTE_ITS ---
- If Service Date Differs Date of service: 05/06/21 Time of Service: 15:14 Care Management Progress Note S/O: Andre continues to be appropriate and cooperative. He spends much of his day sleeping with the covers pulled over his head. At the recommendation of Dr. Faulkner, psychiatrist, Andre was started on depakote 1000 mg HS, depakote 500 mg PO QAM, olanzapine 10 mg BID, and lorazepam 1-2 mg Q4 H PRN. His mood is improved and there have been no behavioral issues for several days now. CM will continue to follow. A: Andre is a 41 year old man who presents in the ED via police for psychosis and suicidal/homicidal ideation. P: Referrals were faxed to [facility], [facility], [facility], and [facility] for review. [facility]. [facility] asked [facility] as Andre has not had a behavioral outburst for several days. Andre will remain at [facility] on voluntary status and will be reassessed by [facility] daily until a psychiatric bed placement can be secured for him. CM will continue to follow. - Status Status: Voluntary - Reason for Wait Reason for Wait: Inpatient Admission
--- NOTE | 2021-05-06 16:37 | PDOC.MHCN_ITS ---
Date of service: 05/06/21 Time of Service: 16:38 Mental Health Crisis Note Presenting Issue How did you arrive at the ED and why did you come: Pt arrived on 05.02.2021 via police seeking voluntary treatment.? He had been evicted from his housing at the [facility] reportedly for disturbing the peace.? Precipitating Factors PT denied SI and HI today. Disposition BEHAVIOR: Pt is sleepy and easily re-directed today. It was a challenge to understand him however, as his words were slurred as if he was intoxicated. It was learned th at he had an extra dose of his Depakote earlier this am so this could be the reason for the symptoms observed. EYE CONTACT: Minimal MOOD: Sleepy but cooperative and easily re-directed. AFFECT: tired APPETITE: Reported he did not like the food this am however, it was observed that 1/2 of it was gone. SLEEP(trouble falling/staying asleep: Pt is sleeping well and seems to want to over sleep. Plan Based on the inability to assess him appropriately today and his history of saying if he left the hospital he would be suicidal this clinician is keeping the patient at [facility] age pending admission to a psychiatric facility or until such time that he can safety plan appropriately back to the community. All hospitals were called today and none available. [facility] had refused him based on behaviors when he first came to the ED. This clinician forwarded updated nursing notes and requested that [facility] continue to review his case for future admission as his behaviors have not been as aggressive as they were when he first came in.
--- NOTE | 2021-05-06 19:09 | NUR.NOTE ---
pt refusing ibuprofen for pain Nursing Note:
[2021-05-06 20:15] VITALS: BP 115/76; PULSE 82; RESP 16; TEMP 36.6; O2SAT 90
[2021-05-06] MEDS: Divalproex 500 MG TABEC 1000 MG PO (23:40)
[2021-05-07] MEDS: OLANZapine 10 MG TAB PO ×2 (06:21→19:40)
[2021-05-07] MEDS: LORazepam 1 MG TAB PO ×3 (06:21→19:40)
[2021-05-07] MEDS: OLANZapine 5 MG TAB PO (06:23)
[2021-05-07] MEDS: Divalproex 500 MG TABEC PO (06:24)
[2021-05-07 06:33] VITALS: BP 105/73; PULSE 58; RESP 16; O2SAT 98
--- NOTE | 2021-05-07 10:54 | CMSP_ITS ---
- If Service Date Differs Date of service: 05/07/21 Time of Service: 10:54 Care Management Safety Plan Status: Voluntary - Reason for Wait Reason for Wait: Inpatient Admission VOLUNTARY FOR INPATIENT PSYCHIATRIC STABILIZATION. Patient is appropriate in all interactions since arriving at [facility]; Pt has demonstrated appropriate coping and communication skills, has articulated his or her needs and concerns and is fully engaged during staff interactions. Safety plan has been established with patient, and care team, to adhere to patient goals, identify restrictions based on behavioral status, address nutrition, and determine allowed personal belongings, tools for hygiene and personal care. Determine level of activity including ambulation, level of supervision, visitors, and determine privileges based on behaviors and level of engagement by pt. SAFETY PLAN: 1. Will remain on suicide precautions. In Paper Clothes 2. Will remain in room under direct supervision of one-on-one staff at all times provided by CPSO, BONIFACIO, INJECTION MOLDING PROCESS TECHNICIAN timber mill worker. 3. May have paper cups, plates, finger foods as well as a cardboard spoon with which to eat meals. 4. Follow [facility] Management of the Admitted Behavioral Health Patient policy. 5. Comfort bath system only. 6. No personal belonging. 7. Visitors-none at this time. 8. Activities: limited to television and remote. 9. Bathroom privileges with escort in the ED, available in room without li mitation on M/S. 10. Phone: no phone use at this time. 11. Due to VOLUNTARY status, if patient wishes to leave [facility], do not attempt to stop patient from leaving. Staff will contact [facility] Crisis Screener ([phone]) and On-Call Search Strategist ([phone]) as soon as possible. In the event of elopement, notify [facility] Police ([phone]). Patient is currently voluntarily at [facility] and seeking inpatient admission when a bed becomes available. [facility] Frontline Christian Science Healer will continue seeking placement. Please contact the [employer] Search Strategist ([phone]) and [facility] Christian Science Healer ([phone]) for any needed changes in the Safety Plan. Safety plan has been provided to interdepartmental care team.
--- NOTE | 2021-05-07 10:54 | PDOC.CMSAFED ---
- If Service Date Differs Date of service: 05/07/21 Time of Service: 10:54 Care Management Safety Plan Status: Voluntary - Reason for Wait Reason for Wait: Inpatient Admission VOLUNTARY FOR INPATIENT PSYCHIATRIC STABILIZATION. Patient is appropriate in all interactions since arriving at [facility]; Pt has demonstrated appropriate coping and communication skills, has articulated his or her needs and concerns and is fully engaged during staff interactions. Safety plan has been established with patient, and care team, to adhere to patient goals, identify restrictions based on behavioral status, address nutrition, and determine allowed personal belongings, tools for hygiene and personal care. Determine level of activity including ambulation, level of supervision, visitors, and determine privileges based on behaviors and level of engagement by pt. SAFETY PLAN: 1. Will remain on suicide precautions. In Paper Clothes 2. Will remain in room under direct supervision of one-on-one staff at all times provided by CPSO, BONIFACIO, COTTON BALL BAGGER marina porter. 3. May have paper cups, plates, finger foods as well as a cardboard spoon with which to eat meals. 4. Follow [facility] Management of the Admitted Behavioral Health Patient policy. 5. Comfort bath system only. 6. No personal belonging. 7. Visitors-none at this time. 8. Activities: limited to television and remote. 9. Bathroom privileges with escort in the ED, available in room without limitation on M/S. 10. Phone: no phone use at this time. 11. Due to VOLUNTARY status, if patient wishes to leave [facility], do not attempt to stop patient from leaving. Staff will contact [facility] Crisis Screener ([phone]) and On-Call Human Resources Training Manager ([phone]) as soon as possible. In the event of elopement, notify [facility] Police ([phone]). Patient is currently voluntarily at [facility] and seeking inpatient admission when a bed becomes available. [facility] Frontline Patient Accounts Specialist will continue seeking placement. Please contact the [employer] Human Resources Training Manager ([phone]) and [facility] Patient Accounts Specialist ([phone]) for any needed changes in the Safety Plan. Safety plan has been provided to interdepartmental care team.
--- NOTE | 2021-05-07 11:00 | PDOC.ERCMPRO ---
- If Service Date Differs Date of service: 05/07/21 Time of Service: 11:00 Care Management Progress Note S/O: Andre continues to be calm and cooperative. He is laying in bed with the covers pulled over his head when CM comes to meet with him. He expresses some concerns over his belongings and CM reassures him that his things are being kept safe in a room at the hospital. He holds out his hand and says where are my pills? CM tells him that his nurse will bring him medication when it is time for him to take it. Andre makes minimal eye contact, his speech is slightly slurred and at times difficult to understand but he engages in conversation without hesitation. He is aware that at some point in the next few hours, he will be moved upstairs where he will continue to await a psychiatric placement. A: Andre is a 41 year old man who presents in the ED via police for psychosis and suicidal/homicidal ideation. P: Referrals were faxed to [facility], [facility], [facility], and [facility] for review. [facility] and [facility] have declined Andre based on behavior. [facility] is asked [facility] as Andre has not had a behavioral outburst for several days. Andre will remain at [facility] on voluntary status and will be reassessed by [facility] daily until a psychiatric bed placement can be secured for him. CM will continue to follow. - Status Status: Voluntary - Reason for Wait Reason for Wait: Inpatient Admission
[2021-05-07 11:07] VITALS: BP 123/83; PULSE 71; RESP 20; O2SAT 99
--- NOTE | 2021-05-07 11:19 | NUR.NOTE ---
According to Carolynn LEYVA RN, the pt has a lot of belongings locked up in Shai's old office in the ED department. According to the linux security administrator, the night ED file clerk has a listed inventory of items. I have requested the list to be included in the chart. Nursing Note:
[2021-05-07 11:20] VITALS: BP 105/73; PULSE 58; RESP 16; TEMP 36.6; O2SAT 98
--- NOTE | 2021-05-07 14:12 | HPE_ITS ---
Date of service: 05/07/21 Time of Service: 14:12 Assessment and Plan Assessment and plan (1) Kathie: Status: Acute Assessment and plan: cont. depakote and Zyprexa and clonidine. We will continue to request Dr. Faulkner's involvement. (2) Depression: Status: Chronic Assessment and plan: patient seems to be bipolar w/ periods of agitation but expresses thoughts of suicide and sometimes even homicidal or aggressive behavior toward staff. At present he seems to be settling down as long as he gets what he wants and is not disturbed. He wanted more hot sauce for his roast beef at lunch. 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 He is to wear the SPICA splint prn for comfort and to follow up w/ ortho as outpatient History of Present Illness Narrative: 41 yr old male presented to [facility] ED on 05/02 brought here by [facility] after arrested for assault. He was brought here for psychiatric evaluation as the patient was expressing suicidal wishes and was making attempts to injure himself while in his holding cell. He also became violent toward [facility] office (spitting in his face) and verbally abuse to ER staff, throwing food tray. He had a medical workup and was found to have a chronic left thumb subluxation for which orthopedics (Dr. Chew) recommended a SPICA splint to be worn prn comfort. Psychiatric telehealth consultation was obtained w/ Dr. Faulkner who recommended adjusting his Depakote dose and putting him on Zyprexa and clonidine. He is now on Zyprexa 10 mg bid along w/ 5 mg q4h prn severe agitation, and Depakote 500 mg qam and 1000 mg at HS and clonidine 0.1 mg tid. KJ has seen the patient and made recommendations for inpatient psychiatric evaluation. Since starting medications, the patient reportedly has been calmer and not acting out. However per this provider's encounter with the patient he has refused to be interviewed by me or to allow me to examine him. 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 (Chronic) Kathie (Acute) Social History Smoking risk assessment performed?: No Meds Allergies and Home Medications Allergies Allergy/AdvReac Type Severity Reaction Status Date / Time acetaminophen [From Tylenol] Allergy Unverified 05/03/21 07:35 Home Medications Medication Instructions Recorded Confirmed Type dextroamphetamine-amphetamine 30 30 mg PO DAILY 05/03/21 05/03/21 History mg tablet (Adderall) divalproex 500 mg tablet,delayed 500 mg PO DAILY 05/03/21 History release (Depakote) risperidone 1 mg tablet 1 mg PO 05/03/21 History trazodone 50 mg tablet mg 05/03/21 History Exam Narrative Exam Narrative: Unable to perform examine d/t patient refuses examination at this time and pulled his blanket over his face and refused to talk to me and told me to get out. Results Labs Result diagrams: 05/02/21 19:10 05/02/21 19:10 Last Vital Signs Temp 36.6 C 05/07/21 11:20 Pulse 58 L 05/07/21 11:20 Resp 16 05/07/21 11:20 BP 105/73 05/07/21 11:20 Pulse Ox 98 05/07/21 11:20
--- NOTE | 2021-05-07 14:59 | PHA.REVIEW ---
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 (Acute) Kathie (Acute) acetaminophen [From Tylenol] Allergy (Unverified 05/03/21 07:35) Resuscitation Status Full Code Height 5 ft 11 in Weight 62 kg - Renal Dosing Renal Dosing: BUN 6 mg/dL (7-18) L 05/02/21 19:10 Creatinine 1.3 mg/dL (0.70-1.30) 05/02/21 19:10 Medications needing adjustments: Reviewed (Crcl ~64 mL/min current meds okay) - Anticoagulation Anticoagulation: Hgb 11.4 g/dL (13.5-17.5) L 05/02/21 19:10 Hct 36.3 % (40.0-50.0) L 05/02/21 19:10 Plt Count 201 10^3/uL (130-400) 05/02/21 19:10 Creatinine 1.3 mg/dL (0.70-1.30) 05/02/21 19:10 DVT Prophylaxis: N/A Therapeutic Anticoagulation: N/A - Opiate Usage Evaluate Pain Scale/Pains Meds: N/A - Relevant Labs Sodium 139 mmol/L (136-145) 05/02/21 19:10 Potassium 3.4 mmol/L (3.5-5.1) L 05/02/21 19:10 Chloride 105 mmol/L (98-107) 05/02/21 19:10 Electrolytes, C-Reactive P, ESR: Reviewed (K+ was little low on admission, no replacement given but depending on pt's diet may have been corrected.) - DM Control DM Control: Glucose 100 mg/dL (74-106) 05/02/21 19:10 Insulin Dosing: N/A - Heart Failure/CT EF%, SHELDON's, B-Blockers, Diuretics: N/A - BP Control BP Control: Blood Pressure 105/73 Blood Pressure 123/83 Blood Pressure 105/73 If elevated: Reviewed (BP high on admission, has been within normal limits to low since then.) - Qtc Review If Elevated: N/A - IV to PO Switch IV Medications: Reviewed - Home Meds Home Med List reviewed: Reviewed (Med rec does not look like it was completed, nothing in the external med history. One medication that was confirmed on the home med list noted that the patient had not taken it in a long time.) - Current meds Current Medication Order Review: Reviewed (Watch BP, SCr, K+, labs and for med changes (possible renal dose adjustments).)
[2021-05-07] MEDS: cloNIDine 0.1 MG TAB PO ×2 (15:19→19:40)
[2021-05-07] MEDS: Ibuprofen 600 MG TAB PO (15:20)
--- NOTE | 2021-05-07 15:35 | NUR.NOTE ---
Nursing Note: At this time, patient was visualized on the camera pacing back and forth in the hallway. This RN, LEEANN Higuera, and BONIFACIO Valdovinos went down to talk to the patient. Patient was educated on the fact we were there to check in and make sure he was good. Patient states I am fine. I am not sitting here with my head against the wall with drool hanging out of my mouth. You came to check on me, lets go to my room baby girl you first (pointing to Aruna). This RN stated No. Patient states Okay I was going to mess with her so hard. Patient was asked to stay in his room at this time. Patient is agreeable and is now sitting on the floor in the room talking with [employer]. Charge nurse made aware of this situation.
[2021-05-07] MEDS: Ondansetron O.D.T. 4 MG TABEF PO (19:41)
[2021-05-07] MEDS: Divalproex 500 MG TABEC 1000 MG PO (23:04)
[2021-05-07] MEDS: LORazepam 2 MG/ML VIAL 1 MG IM (23:04)
[2021-05-07] MEDS: OLANZapine 10 MG VIAL 5 MG IM (23:05)
[2021-05-07] MEDS: Water,Injection,Sterile 10 ML VIAL (23:25)
[2021-05-08] MEDS: OLANZapine 10 MG TAB PO (07:58)
[2021-05-08] MEDS: LORazepam 1 MG TAB PO (07:58)
[2021-05-08] MEDS: cloNIDine 0.1 MG TAB PO (07:58)
[2021-05-08] MEDS: Divalproex 500 MG TABEC PO (07:58)
--- NOTE | 2021-05-08 09:51 | PGE_ITS ---
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 He has given incorrect information about having a friend in [place], [place] when he was offered bus ticket to [place]. He has been offered referral to [facility] but had declined this. At present he has no medical issues that I can see that warrant in patient hospitalization, therefore if KJ deems him appropriate for community discharge, he will be discharged today. Subjective Subjective Interval history since last seen: Patient denies any current thoughts of suicide nor any thoughts or intentions of harming others. He is upset that he was kicked out of the [facility]. He has the expectations that the hospital is going to set him up in a new hotel or living arrangement. He would like to get off the transitional unit. I told him that I am awaiting [facility] to evaluate and write a report indicating that from a mental health standpoint that he can return to the community. Exam Narrative Exam Narrative: Andre is sitting in his doorway talking to the [employer]. He invited me into hit room to talk. He seems to be appropriate in his questions and his answers. He is not hallucinating nor is he aggressive. He is cooperative in my interview w/ him and the examination. He is having heartburn and hiccups (probably precipitated by the large amount of food and hot sauce that he ate yesterday) Lungs: clear Heart: RRR Abdomen: nontender, nondistended, he has a scar over his abdomen from prior surgery Legs: he has scar over his medial distal right thigh from prior surgeries; normal pulses Objective Last Vital Signs Temp 36.6 C 05/07/21 11:20 Pulse 58 L 05/07/21 11:20 Resp 16 05/07/21 11:20 BP 105/73 05/07/21 11:20 Pulse Ox 98 05/07/21 11:20
[2021-05-08] MEDS: Famotidine 20 MG TAB 40 MG PO (10:39)
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
--- NOTE | 2021-05-08 14:55 | PDOC.CMDIS ---
- If Service Date Differs Date of service: 05/08/21 Time of Service: 14:55 LACE Index Scoring Tool - Questions: Length of Stay (in days): 4 - 6 Acuity (Admit via E.D.?): Yes E.D. Visits: 1 - Answers: Total Score: 8 Risk of Readmission: Low Risk Care Management Discharge Reason for Hospitalization: Suicidal, major depression. Discharge Plan: Andre is discharged to the community. He will follow up with his PCP, HS, other community providers, and discharge plan of care as instructed. He is transported by [employer] [facility]. Patient/Family Education Needs: Review of discharge instructions, medications, and follow up plan of care; discuss Ask Me Three and self management needs. - Disposition Disposition: Community Discharge
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
--- NOTE | 2021-05-08 15:26 | PDOC.MHCN_ITS ---
Date of service: 05/08/21 Time of Service: 15:26 Mental Health Crisis Note Presenting Issue How did you arrive at the ED and why did you come: Pt arrived on 05.02.2021 via police seeking voluntary treatment.? He had been evicted from his housing at the [facility] reportedly for disturbing the peace.? Precipitating Factors Pt denied SI and HI. He is not showing signs of delusions. Disposition BEHAVIOR: Pt attempts to try to split the team however, he was informed that what ever he has to ask needs to happen with everyone in the room. EYE CONTACT: Good MOOD: appropriate. AFFECT: normal APPETITE: good SLEEP(trouble falling/staying asleep: good Plan Based on the inability to assess him appropriately today and his history of saying if he left the hospital he would be suicidal this clinician is keeping the patient at [facility] age pending admission to a psychiatric facility or until such time that he can safety plan appropriately back to the community. All hospitals were called today and none available. [facility] had refused him based on behaviors when he first came to the ED. This clinician forwarded updated nursing notes and requested that [facility] continue to review his case for future admission as his behaviors have not been as aggressive as they were when he first came in. Signature Clinician's Name/Title: Phuong Ashton MS, [facility] Emergency Services Clinician
== END 2021-05-08 13:39 | disposition home or self-care (01) ==
LOC: ER 05-07 10:19 → MS 05-07 13:05
PROVIDERS: Registered Nurse Emergency; Admitting Provider Internal Medicine; Emergency Provider Physician Assistant; Visit Provider Internal Medicine
DX: F31.10 Bipolar disorder, current episode manic without psychotic features, unspecified (principal); R45.851 Suicidal ideations; R06.6 Hiccough; Z20.822 Contact with and (suspected) exposure to COVID-19; M24.445 Recurrent dislocation, left finger; F43.10 Post-traumatic stress disorder, unspecified; R10.13 Epigastric pain
CPT/HCPCS: 29125; 36415; 80053; 80307; 87635; 99285; 99291; Q3014; 73140; 80320; 80329; 81003; 84443; 85025; 99217; 99219; G0378; J1630; J2060